=== PATIENT | male | born 1950 | race Caucasian/White ===

== ENCOUNTER 2020-12-09 11:43 | Emergency (ER) | payer MEDICARE, BC ==
[2020-12-09 11:51] VITALS: RESP 18
[2020-12-09] MEDS ORDERED: ACETAMINOPHEN TAB 500 MG TAB PO STA (12:30)
--- NOTE | 2020-12-09 12:33 | ED ---
General Adult HPI - General Chief complaint: Recheck/Abnormal Lab/Rx Stated complaint: fever, body aches, tired Time Seen by Provider: 12/09/20 11:59 Source: patient, RN notes reviewed Mode of arrival: ambulatory Limitations: no limitations - History of Present Illness Initial comments: Patient is a pleasantly 70-year-old male presenting to the emergency department with concern for myalgias. Onset of symptoms was 1 week ago. Patient has minimal cough. Patient states his mouth to psych talk. Patient has fatigue and subjective fevers and generalized malaise and achiness. No dyspnea. No abdominal pain. No urinary symptoms. No rash. - Related Data Home Medications Medication Instructions Recorded Confirmed Aspirin 81 mg PO DAILY 05/15/15 12/09/20 Levothyroxine Sodium [Synthroid] 50 mcg PO DAILY 05/15/15 12/09/20 Lovastatin [Mevacor] 80 mg PO HS 05/15/15 12/09/20 Multivitamins, Thera [Multivitamin] 1 tab PO HS 05/15/15 12/09/20 allopurinoL [Zyloprim] 100 mg PO HS 05/15/15 12/09/20 lisinopriL [Zestril] 10 mg PO DAILY 05/15/15 12/09/20 Allergies Allergy/AdvReac Type Severity Reaction Status Date / Time No Known Allergies Allergy Verified 12/09/20 12:47 Review of Systems ROS Statement: Those systems with pertinent positive or pertinent negative responses have been documented in the HPI. ROS Other: All systems not noted in ROS Statement are negative. Constitutional: Reports: as per HPI, fever, chills Eyes: Denies: eye pain ENT: Denies: ear pain Respiratory: Reports: cough. Denies: dyspnea Cardiovascular: Denies: chest pain Endocrine: Reports: fatigue Gastrointestinal: Denies: abdominal pain Genitourinary: Denies: urgency Musculoskeletal: Denies: back pain Skin: Denies: rash Neurological: Denies: weakness Past Medical History Past Medical History: Hyperlipidemia, Hypertension, Thyroid Disorder History of Any Multi-Drug Resistant Organisms: None Reported Past Surgical History: Hernia Repair, Orthopedic Surgery Additional Past Surgical History / Comment(s): LEFT ANKLE Past Anesthesia/Blood Transfusion Reactions: No Reported Reaction Past Psychological History: No Psychological Hx Reported Smoking Status: Never smoker Past Alcohol Use History: Occasional Past Drug Use History: None Reported - Past Family History Father Family Medical History: Cancer General Exam Limitations: no limitations General appearance: alert, in no apparent distress Head exam: Present: normocephalic Eye exam: Present: normal appearance, PERRL Neck exam: Present: normal inspection Respiratory exam: Present: normal lung sounds bilaterally Cardiovascular Exam: Present: regular rate, normal rhythm GI/Abdominal exam: Present: soft. Absent: tenderness Extremities exam: Present: normal inspection. Absent: pedal edema, calf tenderness Neurological exam: Present: alert Psychiatric exam: Present: normal affect, normal mood Skin exam: Present: normal color. Absent: rash Course Vital Signs 12/09/20 11:48 Temperature 99.9 F H Pulse Rate 82 Respiratory 18 Rate Blood Pressure 116/72 O2 Sat by Pulse 96 Oximetry Medical Decision Making - Medical Decision Making Patient reevaluated and updated. Patient is a candidate for monoclonal antibodies and would like to receive them following discussion - Lab Data Lab Results 12/09/20 Range/Units 12:38 Coronavirus (PCR) Detected A (Not Detectd) - Radiology Data Radiology results: image reviewed (Minimal interstitial changes) Disposition Clinical Impression: COVID-19 Disposition: HOME SELF-CARE Condition: Stable Instructions (If sedation given, give patient instructions): Coronavirus Disease 2019 (COVID-19) Additional Instructions: [id number] vitamin C, vitamin D, and zinc. Melatonin at bedtime. Please follow-up with primary care physician in the next couple days for recheck. Return for difficulty breathing, not tolerating fluids, worsening symptoms or other concerns. Continue to quarantine herself for the next one week, and 24 hours following fevers. Is patient prescribed a controlled substance at d/c from ED?: No Referrals: Arnol Mayfield MD [Primary Care Provider] - 1-2 days Time of Disposition: 13:15
--- NOTE | 2020-12-09 12:46 | XR ---
EXAMINATION TYPE: XR chest 1V portable DATE OF EXAM: 12/09/2020 COMPARISON: NONE HISTORY: Fever and cough. TECHNIQUE: Single frontal view of the chest is obtained. FINDINGS: There is mild chronic parenchymal changes without suspicious focal air space opacity or pn eumothorax seen. Tiny left pleural effusion suspected with blunting of the lateral costophrenic angle The cardiac silhouette size is upper limits of normal. The osseous structures are intact. IMPRESSION: Mild chronic parenchymal changes with tiny left pleural effusion. No suspicious focal in filtrate.
[2020-12-09] MEDS ORDERED: SODIUM CHLORIDE 0.9% 50 ML IVPB ONE (13:45)
[2020-12-09] MEDS ORDERED: CASIRIVIMAB/IMDEVIMAB (EUA) 1,200 MG in SODIUM CHLORIDE 0.9% 100 ML IVPB ONE (13:45)
[2020-12-09 14:55] VITALS: TEMP 98.8
[2020-12-09 17:02] VITALS: BP 105/79; PULSE 56
== END 2020-12-09 17:02 | disposition home or self-care (01) ==
LOC: EC 11:43
DX: U07.1 COVID-19 (principal); E07.9 Disorder of thyroid, unspecified; E78.5 Hyperlipidemia, unspecified; I10 Essential (primary) hypertension; Z79.890 Hormone replacement therapy; Z79.899 Other long term (current) drug therapy
CPT/HCPCS: 87635; 71045; 99283; 96365; Q0243

== ENCOUNTER 2021-07-27 12:49 | Day surgery (SDC) | payer MEDICARE ==
[2021-07-26 10:09] VITALS: BMI 30.2
[~2021-07-27 12:49] MED LIST: LACTATED RINGERS 1,000 ML IV SCH
[2021-07-27 13:56] VITALS: TEMP 97.2
[2021-07-27] MEDS ORDERED: PROPOFOL 10 MG/ML 20 ML VIAL IV ONE (14:30)
--- NOTE | 2021-07-27 14:53 | P.PCN ---
Date of Procedure: 07/27/21 Procedure(s) Performed: BRIEF HISTORY: Patient is a 70-year-old pleasant white male scheduled for an elective colonoscopy as a part of evaluation of prior history of colon polyps. Last colonoscopy was 5 years ago. PROCEDURE PERFORMED: Colonoscopy. PREOPERATIVE DIAGNOSIS: History of colon polyps. IV sedation per Anesthesia. PROCEDURE: After informed consent was obtained, the patient, was brought into the endoscopy unit. IV sedation was administered by Anesthesia under continuous monitoring. Digital rectal examination was normal. Initially the Olympus CF-160 flexible video colonoscope was then inserted in the rectum, gradually advanced into the cecum without any difficulty. Careful examination was performed as the scope was gradually being withdrawn. Ileocecal valve and the appendiceal orifice were visualized and appeared normal. Prep was excellent. Mucosa of the cecum, ascending colon, transverse colon, descending colon, sigmoid colon, and rectum appeared normal. At her sigmoid diverticulosis. Retroflexion was performed in the rectum and no lesions were seen. The patient tolerated the procedure well. IMPRESSION: Normal-appearing colon from rectum to cecum with no evidence of colorectal neoplasia. Scattered sigmoid diverticulosis. RECOMMENDATIONS: Findings of this examination were discussed with the patient as well as his family. He was advised to have a repeat surveillance colonoscopy in 5 years from now because of the prior history of colon polyps.
[2021-07-27 15:10] VITALS: BP 112/73; PULSE 57; RESP 16
== END 2021-07-27 15:40 | disposition home or self-care (01) ==
LOC: ORWHC2ENDO 12:49
PROVIDERS: ATTEND Internal Medicine Gastroenterology
DX: K57.30 Diverticulosis of large intestine without perforation or abscess without bleeding (principal); I10 Essential (primary) hypertension; E78.5 Hyperlipidemia, unspecified; J45.909 Unspecified asthma, uncomplicated; E07.9 Disorder of thyroid, unspecified; K76.0 Fatty (change of) liver, not elsewhere classified; Z86.010 Personal history of colon polyps; Z79.899 Other long term (current) drug therapy
CPT/HCPCS: 45378; J2704